=== PATIENT | female | born 1990 | race American Indian/Alaskan Native ===

== ENCOUNTER 2019-02-22 07:20 | Emergency (ER) | payer OTHER ==
[2019-02-22 07:39] VITALS: BP 177/99
--- NOTE | 2019-02-22 08:53 | Emergency Department Report ---
ED Rash HPI - HPI Chief Complaint: Skin Rash Stated Complaint: BODY PAIN/BLISTERS Duration: 2-3 weeks Location: Upper Extremities, Lower Extremities Suspected Cause: Insect Rash Symptoms: Yes Itching, Yes Blistering, No Facial Swelling, No Tongue/Oral Swelling, No Breathing Difficulties, No Choking Sensation, No Wheezing/Dyspnea, No Peeling, No Fever, No Lightheaded, No Malaise, No Myalgias Severity: moderate Other History: This is a 28-year-old after [place] female who presents to the emergency room with blisters and pruritic rash to bilateral upper extremity and lower extremity. Patient reports symptoms started 2-3 weeks ago. She was seen at [facility] a few months ago with similar symptoms. 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 She reports some blisters are crusted over. ED Review of Systems ROS: Stated complaint: BODY PAIN/BLISTERS Other details as noted in HPI Constitutional: denies: chills, fever Respiratory: denies: cough, shortness of breath, wheezing Cardiovascular: denies: chest pain, palpitations Skin: rash. denies: lesions Neurological: denies: headache, weakness, paresthesias Psychiatric: denies: anxiety, depression ED Past Medical Hx - Past Medical History Previous Medical History?: No - Surgical History Past Surgical History?: No - Social History Smoking Status: Current Every Day Smoker Substance Use Type: None - Medications Home Medications: Home Medications Medication Instructions Recorded Confirmed Last Taken Type Clindamycin [Clindamycin CAP] 300 mg PO Q6H #28 capsule 02/22/19 Unknown Rx Triamcinolone 0.1% [Kenalog 0.1% 1 applic TP TID #1 tube 02/22/19 Unknown Rx CREAM] Rash Exam - Exam General: Vital signs noted. No distress. Alert and acting appropriately. HEENT: No Periorbital Edema, No Conjuctival Injection, No Chemosis, No Perioral Edema, No Tongue Edema, No Uvular Edema, No Compromised Airway, No Drooling Lungs: Yes Good Air Exchange (Normal Breath Sounds), No Wheezes, No Ronchi, No Stridor, No Cough, No Labored Respirations, No Retractions, No Use of Accessory Muscles, No Other Abnormal Lung Sounds Heart: Yes Regular, No Murmur Skin: Yes Erythema, Yes Encrustations (multiple 3 mm papules, encrustations and surrounding cellulitis to BUE and BLE), Yes Other, No Urticarial Rash, No Maculopapular Rash, No Morbilliform rash, No Bulla(e), No Excoriations, No Weeping, No Tenderness, No Edema ED Course Vital Signs 02/22/19 07:38 Temperature 98.0 F Pulse Rate 77 Respiratory 16 Rate Blood Pressure 177/99 O2 Sat by Pulse 98 Oximetry ED Medical Decision Making - Medical Decision Making Patient was examined by me. Vitals are normal and patient is in no acute distress. There are multiple 2-3 mm papules to bilateral upper extremity and lower extremity with encrustations in surrounding cellulitis. Findings are suggestive of impetigo. Patient will be started on antibiotics and steroid cream. Referral to dermatology. Plan discussed with patient and agree with ER plan. Patient discharged home stable. Critical care attestation.: If time is entered above; I have spent that time in minutes in the direct care of this critically ill patient, excluding procedure time. ED Disposition Clinical Impression: Pruritic rash, Impetigo Cellulitis Qualifiers: Site of cellulitis: extremity Site of cellulitis of extremity: lower extremity Laterality: right Qualified Code(s): L03.115 - Cellulitis of right lower limb Disposition: - TO HOME OR SELFCARE Is pt being admited?: No Does the pt Need Aspirin: No Condition: Stable Instructions: Impetigo (ED), Cellulitis (ED) Additional Instructions: Complete full course of antibiotics as prescribed. Follow-up with the de rmatologist from the referral service below. Return to the emergency room if symptoms not improving as discussed. Prescriptions: Clindamycin [Clindamycin CAP] 300 mg PO Q6H #28 capsule Triamcinolone 0.1% [Kenalog 0.1% CREAM] 1 applic TP TID #1 tube Referrals: [facility] [Provider Group] - 3-5 Days [facility] [Outside] - 3-5 Days [facility] [Outside] - 3-5 Days Forms: Work/School Release Form(ED) Time of Disposition: 08:58
== END 2019-02-22 09:12 | disposition home or self-care (01) ==
LOC: ED 07:20
DX: L03.115 Cellulitis of right lower limb (principal); L28.2 Other prurigo; L01.00 Impetigo, unspecified; F17.200 Nicotine dependence, unspecified, uncomplicated